=== PATIENT | female | born 1980 | race Caucasian/White ===

== ENCOUNTER 2021-04-01 18:11 | Emergency (ER) | payer SELFPAY ==
[~2021-04-01] VITALS: Ht 152.4 cm; Wt 95.5 kg
[2021-04-01 23:00] VITALS: BP 138/86
[2021-04-01] MEDS ORDERED: ACETAMINOPHEN 500 MG TABLET PO ONE (23:15)
[2021-04-01] MEDS ORDERED: LIDOCAINE 5% TRANSDERMAL PATCH TD ONE (23:15)
== END 2021-04-02 00:04 | disposition home or self-care (01) ==
LOC: EMS 18:16
DX: S39.012A Strain of muscle, fascia and tendon of lower back, initial encounter (principal); Z90.89 Acquired absence of other organs; X58.XXXA Exposure to other specified factors, initial encounter; Y93.89 Activity, other specified; Y92.89 Other specified places as the place of occurrence of the external cause; Y99.8 Other external cause status
CPT/HCPCS: 81002; 99283

== ENCOUNTER 2021-04-11 16:18 | Emergency (ER) | payer MEDICAID ==
[~2021-04-11] VITALS: Ht 154.9 cm; Wt 95.5 kg
[2021-04-11] MEDS ORDERED: ACETAMINOPHEN 325 MG TABLET PO ONE (17:00)
[2021-04-11 17:42] LABS: INFLUENZA TYPE A NEGATIVE FOR TYPE A (NEGATIVE); INFLUENZA TYPE B NEGATIVE FOR TYPE B (NEGATIVE)
[2021-04-11] MEDS ORDERED: IBUPROFEN 800 MG TABLET PO ONE (18:45)
[2021-04-11 19:42] VITALS: BP 147/72
== END 2021-04-11 19:45 | disposition home or self-care (01) ==
LOC: EMS 16:19
DX: J18.9 Pneumonia, unspecified organism (principal); Z20.822 Contact with and (suspected) exposure to COVID-19
CPT/HCPCS: 71045; 87804; 99285; U0003